=== PATIENT | male | born 1975 | race African-American/Black ===

== ENCOUNTER 2017-07-31 00:57 | Emergency (ER) | payer MEDICAID ==
[~2017-07-31] VITALS: Ht 175.3 cm; Wt 69.0 kg
[~2017-07-31 00:57] MED LIST: BACL20TA PO; HYDR-519 PO; IRON PO; MULT-1146 PO
[2017-07-31] MEDS ORDERED: IBUPROFEN 800MG TABLET PO ONE (06:45)
[2017-07-31] MEDS ORDERED: OXYCODONE HCL/ACETAMINOPHEN 5/325MG TABLET PO ONE (06:45)
[2017-07-31 07:28] VITALS: BP 102/55
== END 2017-07-31 07:59 | disposition home or self-care (01) ==
LOC: ER 00:57
DX: M54.5 Low back pain (principal); F17.200 Nicotine dependence, unspecified, uncomplicated; F12.10 Cannabis abuse, uncomplicated; Z88.5 Allergy status to narcotic agent; Z93.3 Colostomy status; Z87.19 Personal history of other diseases of the digestive system; Z90.49 Acquired absence of other specified parts of digestive tract
CPT/HCPCS: 99283